=== PATIENT | male | born 1970 | race Two or more races ===

== ENCOUNTER → 2021-06-10 | Outpatient (CLI) | payer OTHER | END | disposition home or self-care (01) | LOC: Rad HDHVI 15:49 | PROVIDERS: ATTEND Internal Medicine | DX: I35.8 Other nonrheumatic aortic valve disorders (principal); I51.7 Cardiomegaly; R07.89 Other chest pain; R06.02 Shortness of breath | CPT/HCPCS: 93306 ==

== ENCOUNTER 2021-10-31 10:35 | Emergency (ER) | payer MEDICAID, OTHER ==
[~2021-10-31] VITALS: Ht 167.6 cm; Wt 83.9 kg
[2021-10-31 11:56] VITALS: BP 150/85
[2021-10-31] MEDS ORDERED: BENZ100C19 PO (13:19)
[2021-10-31] MEDS ORDERED: DOXY-286 PO (13:19)
[2021-10-31] MEDS ORDERED: PRED20TA2 PO (13:19)
== END 2021-10-31 13:36 | disposition home or self-care (01) ==
LOC: ER 10:35
DX: J06.9 Acute upper respiratory infection, unspecified (principal); J45.909 Unspecified asthma, uncomplicated; Z20.822 Contact with and (suspected) exposure to COVID-19
CPT/HCPCS: 36415; 71045; 71250; 87426

== ENCOUNTER → 2022-03-24 | Outpatient (CLI) | payer MEDICAID ==
[~2022-03-24] MED LIST: BENZ100C19 PO; DOXY-286 PO; PRED20TA2 PO
== END | disposition home or self-care (01) ==
LOC: Rad HDHVI 15:06
PROVIDERS: ATTEND Internal Medicine
DX: R07.9 Chest pain, unspecified (principal); R06.02 Shortness of breath
CPT/HCPCS: 93306

== ENCOUNTER → 2022-08-18 | Outpatient (CLI) | payer MEDICAID ==
[~2022-08-18] VITALS: Ht 167.6 cm; Wt 83.9 kg
== END | disposition home or self-care (01) ==
LOC: Rad HDHVI 08:20
PROVIDERS: ATTEND Internal Medicine
DX: I20.9 Angina pectoris, unspecified (principal); I10 Essential (primary) hypertension; E78.00 Pure hypercholesterolemia, unspecified; F17.200 Nicotine dependence, unspecified, uncomplicated
CPT/HCPCS: 78452; 93017; 96374; A9500

== ENCOUNTER 2024-07-05 13:28 | Emergency (ER) | payer MEDICAID ==
[~2024-07-05] VITALS: Ht 167.6 cm; Wt 87.1 kg
[2024-07-05 14:13] VITALS: BP 128/78; PULSE 80; RESP 16; TEMP 97.8; O2SAT 98
[2024-07-05] MEDS: FLUORESCEIN SOD OPTH TEST STRIP RIGHTEYE ONE (14:32)
[2024-07-05] MEDS: TETRACAINE HCL 0.5% OPTH(EYE) SOLN 4ML RIGHTEYE ONE (14:33)
[2024-07-05] MEDS ORDERED: KETO0.5S31 RIGHTEYE (15:21)
[2024-07-05] MEDS ORDERED: CIPR0.3S67 OP (15:21)
== END 2024-07-05 15:38 | disposition home or self-care (01) ==
LOC: ER 13:28
DX: S05.01XA Injury of conjunctiva and corneal abrasion without foreign body, right eye, initial encounter (principal); J45.909 Unspecified asthma, uncomplicated; I50.9 Heart failure, unspecified; Z79.899 Other long term (current) drug therapy; Z98.890 Other specified postprocedural states; X58.XXXA Exposure to other specified factors, initial encounter; Y93.89 Activity, other specified; Y92.89 Other specified places as the place of occurrence of the external cause; Y99.8 Other external cause status

== ENCOUNTER 2024-11-13 09:15 | Emergency (ER) | payer MEDICAID ==
[~2024-11-13] VITALS: Ht 167.6 cm; Wt 86.9 kg
[~2024-11-13 09:15] MED LIST changes: +CIPR0.3S67 OP; +KETO0.5S31 RIGHTEYE
[2024-11-13 09:41] VITALS: BP 139/77; PULSE 78; RESP 18; TEMP 98; O2SAT 100
[2024-11-13] MEDS ORDERED: IBUP1TAB5 PO (11:01)
[2024-11-13] MEDS ORDERED: CYCL-838 PO (11:01)
--- NOTE | 2024-11-13 11:02 | ED.PDOC ---
History of Present Illness HPI Comments This is a 53 year old male with h/o Back surgery in 2016. states 3 days ago woke up with left sciatica pain. Denies any new injuries. no new falls. States has no Urinary symptoms. Develops pain from time to time. Chief Complaint: Back Pain Time Seen by MD: 10:49 Primary Care Provider: [facility] Reviewed Notes: Nurses Notes, Medications, Allergies Allergies: Coded Allergies: NO KNOWN ALLERGIES (Unverified , 10/31/21) Home Meds Active Scripts Ketorolac Tromethamine (Ophth) (Ketorolac Tromethamine) 0.5 % Domenica, 1 DROP RIGHTEYE QID for 3 Days, #5 ML 0 Refills Prov:GABY GLORIA CHIEF CLERK SHELTER 07/05/24 Ciprofloxacin HCl (Ophth) (Ciprofloxacin Hydrochlori) 0.3 % Domenica, 1 DROP OP QID for 5 Days, #5 ML 0 Refills Prov:GABY GLORIA CHIEF CLERK SHELTER 07/05/24 Benzonatate (Tessalon Perles) 100 Mg Cap, 1 CAP PO TID PRN, #30 CAP 0 Refills Prov:DIEUDONNE SPRING 10/31/21 Prednisone (Prednisone) 20 Mg Tab, 20 MG PO BID for 5 Days, #10 MG 0 Refills Prov:DIEUDONNE SPRING 10/31/21 Doxycycline Hyclate (DOXYCYCLINE HYCLATE) 100 Mg Tab, 1 TAB PO BID for 7 Days, #14 TAB 0 Refills Prov:DIEUDONNE SPRING 10/31/21 Information Source: Patient Mode of Arrival: Ambulatory Past Medical History PAST MEDICAL HISTORY: Asthma, CHF Surgical History: Denies all surgeries Surgical History (Other): back surgery 2016 Family History Family History: Unknown Social History Smoker: Non-Smoker Alcohol: Denies ETOH Use Drugs: Denies Drug Use Lives In: Home Musculoskeletal: reports: others (sciatica) All Other Systems: Reviewed and Negative Physical Exam General Appearance: No Apparent Distress, None HEENT: Normal ENT Inspection, Pale Conjuntivae (R), Pharynx Normal, TMs Normal Neck: Full Range of Motion, Non-Tender, Normal Inspection Respiratory: Lungs Clear, No Respiratory Distress, Normal Breath Sounds Cardiovascular: Regular Rate/Rhythm Breast Exam: Deferred Gastrointestinal: Non Tender, Soft Genitalia: Deferred Pelvic: Deferred Rectal: Deferred Extremities: Normal range of motion, Other (pain over the left buttocks) Neurologic: Alert, Normal Mood Cerebellar Function: Normal Reflexes: NOT DONE Skin: Dry, Warm Lymphatic: No Adenopathy, NOT DONE Was a procedure done? Was a procedure done?: No Differential Dx Considerations may include: UTI vs shingles vs lumbar strain X-Ray, Labs, Meds, VS Vital Signs Date Time Temp Pulse Resp B/P (MAP) Pulse Ox O2 Delivery O2 Flow Rate FiO2 11/13/24 09:41 98.0 78 18 139/77 (97) 100 98.0 11/13/24 09:41 78 18 100 Room Air 11/13/24 09:26 98.2 78 18 139/77 (97) 100 X-Ray, Labs, Meds, VS Comment Patient seen and examined by me. Patient exam consistent with sciatica. Patient was given Toradol 60 mg with good results. Instructed to heat and Ice and Stretch. Will give a Rx for Motrin and Flexeril. Follow-up up with PMD in 2 days. Time of 1ST Reevaluation: 10:57 Reevaluation 1ST: Improved Patient Education/Counseling: Diagnosis, Treatment, Prognosis, Need For Follow Up Family Education/Counseling: No Family Present Departure 1 Departure Time of Disposition: 10:57 Impression: Primary Impression: Lumbar radiculopathy Additional Impression: Sciatica Disposition: 01 HOME / SELF CARE / HOMELESS Condition: Good Additional Instructions: Follow-up with your regular MD Ice and heat to your back Stretch as much as possible Tame Motrin with food. e-Prescriptions Cyclobenzaprine Hcl (CYCLOBENZAPRINE HCL) 7.5 Mg Tab 7.5 MG PO TID for 7 Days, #21 TAB Prov: JACKIE KINCAID 11/13/24 Ibuprofen Micronized (Ibuprofen) 600 Mg Tab 600 MG PO Q6HPRN PRN for 5 Days, #20 TAB Prov: JACKIE KINCAID 11/13/24 Discharged With: Self Critical Care Note Critical Care Time?: No Stability Stability form required: JACKIE Falcon Nov 13, 2024 11:02
[2024-11-13] MEDS: KETOROLAC TROMETH 60MG/2ML VIAL IM ONE (11:14)
== END 2024-11-13 11:15 | disposition home or self-care (01) ==
LOC: ER 09:15
DX: M54.16 Radiculopathy, lumbar region (principal); M54.32 Sciatica, left side; J45.909 Unspecified asthma, uncomplicated; I50.9 Heart failure, unspecified; Z98.890 Other specified postprocedural states
CPT/HCPCS: 96372; 99283; J1885

== ENCOUNTER 2025-03-13 09:19 | Emergency (ER) | payer MEDICAID ==
[~2025-03-13] VITALS: Ht 167.6 cm; Wt 81.8 kg
[~2025-03-13 09:19] MED LIST changes: +CYCL-838 PO; +IBUP1TAB5 PO
--- NOTE | 2025-03-13 10:07 | ED.PDOC ---
History of Present Illness HPI Comments 54 year old male presents to the ED with a chief complaint of abscess on RT groin for the past 8 months. Patient states he began experiencing abscess on RT side groin 8 months ago, for the past week patient noticed abscess has worsen with erythema and purulent discharge. He states he has tried to clean abscess daily, has not seen PCP. PMHx asthma, CHF, HTN. Denies fever, chills, nausea, vomiting, diarrhea, headache, dizziness, chest pain, shortness of breath. No other symptoms or modifying factors present at this time. Chief Complaint: Abscess Time Seen by MD: 09:45 Primary Care Provider: [facility] Reviewed Notes: Medications, Allergies Allergies: Coded Allergies: NO KNOWN ALLERGIES (Unverified , 10/31/21) Home Meds Active Scripts Cyclobenzaprine Hcl (CYCLOBENZAPRINE HCL) 7.5 Mg Tab, 7.5 MG PO TID for 7 Days, #21 TAB Prov:JACKIE KINCAID SUPERVISOR GRINDING 11/13/24 Ibuprofen Micronized (Ibuprofen) 600 Mg Tab, 600 MG PO Q6HPRN PRN for 5 Days, #20 TAB Prov:JACKIE KINCAID SUPERVISOR GRINDING 11/13/24 Ketorolac Tromethamine (Ophth) (Ketorolac Tromethamine) 0.5 % Domenica, 1 DROP RIGHTEYE QID for 3 Days, #5 ML 0 Refills Prov:GABY GLORIA CLAY MINE CUTTING MACHINE OPERATOR 07/05/24 Ciprofloxacin HCl (Ophth) (Ciprofloxacin Hydrochlori) 0.3 % Domenica, 1 DROP OP QID for 5 Days, #5 ML 0 Refills Prov:GABY GLORIA CLAY MINE CUTTING MACHINE OPERATOR 07/05/24 Benzonatate (Tessalon Perles) 100 Mg Cap, 1 CAP PO TID PRN, #30 CAP 0 Refills Prov:DIEUDONNE SPRING 10/31/21 Prednisone (Prednisone) 20 Mg Tab, 20 MG PO BID for 5 Days, #10 MG 0 Refills Prov:DIEUDONNE SPRING 10/31/21 Doxycycline Hyclate (DOXYCYCLINE HYCLATE) 100 Mg Tab, 1 TAB PO BID for 7 Days, #14 TAB 0 Refills Prov:DIEUDONNE SPRING 10/31/21 Information Source: Patient Mode of Arrival: Ambulatory Severity: Moderate Timing: Months Duration: Since onset Prehospital treatment: None Past Medical History PAST MEDICAL HISTORY: Asthma, CHF, HTN Surgical History: Denies all surgeries Family History Family History: Unknown Social History Smoker: Cigarettes Alcohol: Denies ETOH Use Drugs: Denies Drug Use Lives In: Home Constitutional: denies: chills, diaphoresis, fatigue, fever, malaise, sweats, weakness, others EENTM: denies: blurred vision, double vision, ear bleeding, ear discharge, ear drainage, ear pain, ear ringing, eye pain, eye redness, hearing loss, mouth pain, mouth swelling, nasal discharge, nose bleeding, nose congestion, nose pain, photophobia, tearing, throat pain, throat swelling, voice changes, others Respiratory: denies: cough, hemoptysis, orthopnea, SOB at rest, shortness of breath, SOB with excertion, stridor, wheezing, others Cardiovascular: denies: chest pain, dizzy spells, diaphoresis, Dyspnea on exertion, edema, irregular heart beat, left arm pain, lightheadedness, palpitations, PND, syncope, others Gastrointestinal: denies: abdomen distended, abdominal pain, blood streaked bowels, constipated, diarrhea, dysphagia, difficulty swallowing, hematemesis, melena, nausea, poor appetite, poor fluid intake, rectal bleeding, rectal pain, vomiting, others Genitourinary: denies: burning, dysuria, flank pain, frequency, hematuria, incontinence, penile discharge, penile sore, pain, testicle pain, testicle swelling, urgency, others Neurological: denies: dizziness, fainting, headache, left sided numbness, left sided weakness, numbness, paresthesia, pre-existing deficit, right sided numbness, right sided weakness, seizure, speech problems, tingling, tremors, weakness, others Musculoskeletal: denies: back pain, gout, joint pain, joint swelling, muscle pain, muscle stiffness, neck pain, others Integumetry: reports: others (abscess on RT groin ); denies: bruises, change in color, change in hair/nails, dryness, laceration, lesions, lumps, rash, wounds Allergic/Immunocompromised: denies: Difficulty Healing, Frequent Infections, Hives, Itching, others Hematologic/Lymphatic: denies: anemia, blood clots, easy bleeding, easy bruising, swollen glands, others Endocrine: denies: excessive hunger, excessive sweating, excessive thirst, excessive urination, flushing, intolerance to cold, intolerance to heat, unexplained weight gain, unexplained weight loss, others Psychiatric: denies: anxiety, bipolar disorder, depression, hopeless, panic disorder, schizophrenia, sleepless, suicidal, others All Other Systems: Reviewed and Negative Physical Exam General Appearance: Moderate Distress, Normal HEENT: Normal ENT Inspection, Pharynx Normal, TMs Normal Neck: Full Range of Motion, Non-Tender, Normal, Normal Inspection Respiratory: Chest Non-Tender, Lungs Clear, No Accessory Muscle Use, No Respiratory Distress, Normal Breath Sounds Cardiovascular: No Edema, No JVD, No Murmur, No Gallop, Normal Peripheral Pulses, Regular Rate/Rhythm Breast Exam: Deferred Gastrointestinal: No Organomegaly, Non Tender, No Pulsatile Mass, Normal Bowel Sounds, Soft Genitalia: Deferred Pelvic: Deferred Rectal: Deferred Extremities: No calf tenderness, Normal capillary refill, Normal inspection, Normal range of motion, Non-tender, No pedal edema Musculoskeletal : Apperance: Normal Neurologic: Alert, roughener II-XII nml as Tested, No Motor Deficits, Normal Affect, Normal Mood, No Sensory Deficits Cerebellar Function: Normal Reflexes: Normal Skin: Dry, Normal Color, Warm, Wounds (Inguinal canal) Peripheral Pulses: 3+ Radial (R), 3+ Radial (L) Lymphatic: No Adenopathy Was a procedure done? Was a procedure done?: No Differential Dx Considerations may include: Abscess X-Ray, Labs, Meds, VS Vital Signs Date Time Temp Pulse Resp B/P (MAP) Pulse Ox O2 Delivery O2 Flow Rate FiO2 03/13/25 10:02 98.7 69 16 142/90 (107) 95 98.7 03/13/25 10:02 69 16 95 Room Air 03/13/25 09:24 97.6 73 18 150/99 (116) 96 97.6 Patient alert. Does have wound in the right inguinal canal. Vitals stable. Answering questions. On examination the abscess does not require drain. He does have seeping from the wound. Was given prescription of amoxicillin clindamycin antibiotic. Counseled patient on effects of smoking cigarettes for 15 minutes. Was told to follow up with his primary care physician. Was told to come back if there is any problem. Time of 1ST Reevaluation: 10:15 Reevaluation 1ST: Unchanged Patient Education/Counseling: Diagnosis, Treatment, Prognosis Family Education/Counseling: No Family Present Departure 1 Departure Time of Disposition: 10:58 Impression: Primary Impression: Abscess Disposition: 01 HOME / SELF CARE / HOMELESS Condition: Good e-Prescriptions Clindamycin Hcl (Clindamycin Hcl) 300 Mg Cap 1 CAP PO TID for 7 Days, #21 CAP Prov: RON MOORE MD 03/13/25 Amoxicillin Trihydrate (Amoxicillin) 500 Mg Tab 1 TAB PO TID for 7 Days, #21 TAB Prov: RON MOORE MD 03/13/25 Discharged With: Self Critical Care Note Critical Care Time?: No Stability Stability form required: No Heart Score Heart Score: Heart Score Response (Comments) Value History N/A 0 EKG N/A 0 Age N/A 0 Risk Factors N/A 0 Troponin N/A 0 Total 0 I personally scribed for RON MOORE MD ([email or web address]) on 03/13/25 at 10:07. Electronically submitted by Kiara Morton ([email or web address]). RON MOORE MD March 13, 2025 10:07
[2025-03-13] MEDS ORDERED: CLIN1CAP70 PO (10:59)
[2025-03-13] MEDS ORDERED: AMOX500T3 PO (10:59)
[2025-03-13 11:07] VITALS: BP 121/80; PULSE 61; RESP 16; TEMP 98; O2SAT 96
== END 2025-03-13 11:07 | disposition home or self-care (01) ==
LOC: ER 09:19
DX: L02.214 Cutaneous abscess of groin (principal); J45.909 Unspecified asthma, uncomplicated; I11.0 Hypertensive heart disease with heart failure; I50.9 Heart failure, unspecified; F17.210 Nicotine dependence, cigarettes, uncomplicated; Z79.52 Long term (current) use of systemic steroids; Z79.899 Other long term (current) drug therapy